=== PATIENT | female | born 1950 | race Caucasian/White ===

== ENCOUNTER → 2019-09-13 | Outpatient (CLI) | payer MEDICARE | END | disposition home or self-care (01) | LOC: RAH 07:39 | PROVIDERS: ATTEND Physical Medicine & Rehabilitation | DX: M47.24 Other spondylosis with radiculopathy, thoracic region (principal); M43.8X4 Other specified deforming dorsopathies, thoracic region | CPT/HCPCS: 72148 ==

== ENCOUNTER → 2019-11-07 | Outpatient (CLI) | payer MEDICARE | END | disposition home or self-care (01) | LOC: RAH 14:37 | PROVIDERS: ATTEND Physical Medicine & Rehabilitation | DX: M84.38XA Stress fracture, other site, initial encounter for fracture (principal); M54.16 Radiculopathy, lumbar region; Z90.710 Acquired absence of both cervix and uterus | CPT/HCPCS: 72195 ==

== ENCOUNTER → 2019-11-09 | Outpatient (CLI) | payer MEDICARE | END | disposition home or self-care (01) | LOC: RAH 09:00 | PROVIDERS: ATTEND Physical Medicine & Rehabilitation | DX: M51.16 Intervertebral disc disorders with radiculopathy, lumbar region (principal); M53.3 Sacrococcygeal disorders, not elsewhere classified | CPT/HCPCS: 72148 ==

== ENCOUNTER 2020-07-29 18:55 | Inpatient (IN) | payer MEDICARE ==
[~2020-07-29] VITALS: Ht 154.9 cm; Wt 47.4 kg
[~2020-07-29 18:55] MED LIST: IBRU420T PO; LACT1CAP88 PO; LEVO100T4 PO; LEVO50TA6 PO; LIOT5TAB11 PO; METO50TA9 PO; [UNRECOGNIZED DRUG - OTHER] PO; [UNRECOGNIZED DRUG - OTHER] PO; [UNRECOGNIZED DRUG - OTHER] PO
[2020-07-29 19:49] LABS: BASOPHILS % (AUTO) 0.1 % (0.0-5.0); EOSINOPHILS % (AUTO) 0.1 % (0.0-8.0); HEMATOCRIT 37.7 % (36-48); LYMPHOCYTES % (AUTO) 5.4 % (21.0-51.0); MEAN CORPUSCULAR HEMOGLOBIN 29.9 pg (27.0-33.0); MEAN CORPUSCULAR HGB CONC 34.7 g/dL (32.0-36.0); MEAN CORPUSCULAR VOLUME 86.1 fL (79-99); MONOCYTES % (AUTO) 14.7 % (3.0-13.0); NEUTROPHILS % (AUTO) 79.1 % (40.0-77.0); PLATELET COUNT (AUTO) 331 K/uL (130-400); RED BLOOD CELL COUNT(AUTO) 4.38 MIL/uL (4.00-5.50); RED CELL DISTRIBUTION WIDTH 12.8 % (11.0-15.5); WHITE BLOOD COUNT (AUTO) 15.6 K/uL (4.8-10.8)
[2020-07-29 20:13] LABS: ALBUMIN 2.4 g/dL (3.5-5.0); BILIRUBIN,TOTAL 0.9 mg/dL (0.2-1.0); CREATININE 0.6 mg/dL (0.5-1.5); POTASSIUM 4.1 mmol/L (3.5-5.1); THYROID STIMULATING HORMONE 3.64 uIU/mL (0.36-3.74); TOTAL PROTEIN, SERUM 6.5 g/dL (6.0-8.3)
[2020-07-29 20:33] LABS: B-TYPE NATRIURETIC PEPTIDE 170 pg/mL (0-100)
[2020-07-29] MEDS ORDERED: SODIUM CHLORIDE 0.9% 1000ML 1,000 ML IV ONE (22:31)
[2020-07-29 23:15] LABS: APPEARANCE,URINE Clear (CLEAR); BILIRUBIN,URINE Negative (NEGATIVE); COLOR,URINE Yellow (YELLOW); GLUCOSE, URINE (UA) Negative (NEGATIVE); KETONES,URINE 40 mg/dL (NEGATIVE); LEUKOCYTE ESTERASE ,URINE Trace (NEGATIVE); NITRATE,URINE Negative (NEGATIVE); OCCULT BLOOD,URINE Negative (NEGATIVE); PROTEIN,URINE Negative (NEGATIVE); UROBILINOGEN,URINE 0.2 mg/dL (0.2-1.0)
[2020-07-29 23:26] LABS: RBC,URINE 0-1 /HPF (0-1)
[2020-07-29 23:27] LABS: BACTERIA,URINE Few /HPF (None Seen)
[2020-07-30 08:30] LABS: BASOPHILS % (AUTO) 0.1 % (0.0-5.0); EOSINOPHILS % (AUTO) 0.1 % (0.0-8.0); LYMPHOCYTES % (AUTO) 4.5 % (21.0-51.0); MEAN CORPUSCULAR HEMOGLOBIN 29.7 pg (27.0-33.0); MEAN CORPUSCULAR HGB CONC 33.9 g/dL (32.0-36.0); MEAN CORPUSCULAR VOLUME 87.4 fL (79-99); MONOCYTES % (AUTO) 14.2 % (3.0-13.0); NEUTROPHILS % (AUTO) 80.6 % (40.0-77.0); PLATELET COUNT (AUTO) 348 K/uL (130-400); RED BLOOD CELL COUNT(AUTO) 4.35 MIL/uL (4.00-5.50); WHITE BLOOD COUNT (AUTO) 14.6 K/uL (4.8-10.8)
[2020-07-30 08:33] LABS: CREATININE 0.6 mg/dL (0.5-1.5)
[2020-07-30] MEDS ORDERED: PANTOPRAZOLE SODIUM 40 MG TABLET.DR ONE (09:22)
[2020-07-30] MEDS ORDERED: IPRATROPIUM/ALBUTEROL SULFATE 3 ML SOLUTION IH ONE (12:51)
[2020-07-30] MEDS ORDERED: DIPHENHYDRAMINE HCL 25 MG CAPSULE PO PRN (14:15)
[2020-07-30] MEDS ORDERED: LACTULOSE 20 GM/30 ML UDCUP PO PRN (14:15)
[2020-07-30] MEDS ORDERED: GUAIFENESIN-DM 200/20 MG 10 ML PO PRN (14:15)
[2020-07-30] MEDS ORDERED: DiphenhydrAMINE HCL 50 MG/ML VIAL IV PRN (14:15)
[2020-07-30] MEDS ORDERED: HYDRALAZINE HCL 20 MG/ML VIAL IV PRN (14:15)
[2020-07-30] MEDS ORDERED: ACETAMINOPHEN 325 MG TAB PO PRN ×2 (14:15)
[2020-07-30] MEDS ORDERED: ACETAMINOPHEN-CODEINE 300/30MG TAB PO PRN ×2 (14:15)
[2020-07-30] MEDS ORDERED: CEFTRIAXONE SODIUM 1 GM ONE (16:47)
[2020-07-30] MEDS ORDERED: AZITHROMYCIN 500MG+NS 250ML 250 ML IV ONE (17:29)
[2020-07-30] MEDS ORDERED: IPRATROPIUM/ALBUTEROL SULFATE 3 ML SOLUTION IH SCH (18:00)
[2020-07-30 18:35] VITALS: BP 126/70
--- NOTE | 2020-07-30 18:48 | NUR ---
Initial contact with pt Pt received from ED at 1815, report received from Jennifer DAVID Pt aaox4, VS stable. Airway patent, mildly labored on 2LNC. No complaints at this time. Denies any pain. Informed pt plan of care. Pt attached to bedside O2 monitor.
[2020-07-30] MEDS: AZITHROMYCIN 500MG+NS 250ML 250 ML IV SCH (19:03)
[2020-07-30] MEDS: CEFTRIAXONE SODIUM 1 GM IV SCH (19:04)
[2020-07-30] MEDS: BENZONATATE 100 MG CAPSULE PO SCH (19:55)
[2020-07-30] MEDS: METOPROLOL TARTRATE 25 MG TAB PO SCH (19:55)
[2020-07-31 03:51] VITALS: BP 125/84
[2020-07-31 05:22] LABS: HEMATOCRIT 36.7 % (36-48); MEAN CORPUSCULAR HGB CONC 34.6 g/dL (32.0-36.0); MEAN CORPUSCULAR VOLUME 86.6 fL (79-99); RED BLOOD CELL COUNT(AUTO) 4.24 MIL/uL (4.00-5.50); WHITE BLOOD COUNT (AUTO) 16.2 K/uL (4.8-10.8)
[2020-07-31 05:35] LABS: CREATININE 0.6 mg/dL (0.5-1.5); POTASSIUM 4.1 mmol/L (3.5-5.1)
[2020-07-31 08:00] VITALS: BP 139/83
--- NOTE | 2020-07-31 08:11 | NUR ---
CHERRIE ATTEMPTED-CALL TO SPOUSE NO ANSWER NOTES REVIEWED FROM LAST ADMIT- D/C 5 DAYS AGO PER LAST ADMIT SPOKE TO FOR D/C PLANNING AT THAT TIME SPOUSE STATED THAT "PATIENT IS INDEPENDENT W ALL ADL'S, AMBULATES WELL, USES STD WALKER 'JUST SOME OF THE TIME' DRIVES; HOME SAFE & ACCESSIBLE WITH ONE LEVEL AND SHOWER BENCH. SPOUSE ALSO ACTIVE AND INDEPENDENT. FOLLOWS WITH DR. BENOIT 2X YEAR, DR. STALEY Q 2-3 MOS." PENDING CALL TO CONFIRM ANY CHANGES . CM TO FOLLOW UP. Addendum: 07/31/20 at 0814 by KYLE GALEANO RN CM Amended: Links added.
[2020-07-31] MEDS: ENOXAPARIN SODIUM 40 MG/0.4 ML SYRINGE SQ SCH (09:00)
[2020-07-31] MEDS: BENZONATATE 100 MG CAPSULE PO SCH ×3 (09:00→21:00)
[2020-07-31] MEDS: METOPROLOL TARTRATE 25 MG TAB PO SCH ×2 (09:00→21:00)
[2020-07-31] MEDS: FAMOTIDINE 20MG TAB 20 MG TAB PO SCH (09:00)
--- NOTE | 2020-07-31 09:15 | NUR ---
US GUIDED LEFT THORACENTESIS PROCEDURE PERFORMED BY DR. MADERA. PUNCTURE SITE LEFT LATERAL POSTERIOR BACK AND PATIENT TOLERATED PROCEDURE WELL. TOTAL REMOVED 900 MILLILITERS OF CLOUDY YELLOW FLUID. END OF PROCEDURE AT 0930. CATHETER REMOVED AND DRESSING APPLIED. NO BLEEDING NOTED. SPECIMEN COLLECTED AND SENT TO LAB. POST CHEST X-RAY TAKEN AND READ BY DR. MADERA. NO PNEUMOTHORAX SEEN. REPORT GIVEN TO FRANKIE LAWSON AND PATIENT TRANSPORTED TO 229 VIA W/C. PT STABLE, AAO X 3 WITH NO C/O PAIN.
[2020-07-31] MEDS ORDERED: IOHEXOL-350 75 ML VIAL IV ONE (10:57)
[2020-07-31 12:00] VITALS: BP 123/72
[2020-07-31 13:56] LABS: APPEARANCE BODY FLUID CLEAR (CLEAR); BODY FLUID WBC 254 /cu. mm.; COLOR,BODY FLUID YELLOW (LT YELLOW); SPECIMENTYPE,BODY FLUID PLEURAL; TOTAL VOLUME,BODY FLUID 900 mL
[2020-07-31 13:57] LABS: BODY FLUID RBC 702 /cu. mm.
[2020-07-31 14:06] LABS: BF LYMPHOCYTE 45 %; BF MESOTHELIAL 32 %; BF MONOCYTE 3 %
[2020-07-31] MEDS: AZITHROMYCIN 500MG+NS 250ML 250 ML IV SCH (14:15)
[2020-07-31] MEDS: CEFTRIAXONE SODIUM 1 GM IV SCH (14:15)
--- NOTE | 2020-07-31 15:13 | NUR ---
RDSCREEN - LOW BMI FOR AGE Pt with recent previous admit. Heart Healthy diet order in place. Fluid restriction of 1200mL. Food preferences updated as per previous recent admission. Attempt to call Pt, No answer. Monitored labs: WBC 16.2, Na 120, Cl 89, BUN 20, BNP 170, Alb 2.4. 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 Enhanced isolation at this time. Milk, Shrimp, Gluten, [place] food allergies. No report of GI distress. BMI 19.8. No signs of muscle/fat loss as per EMR. Recommend continue Heart Healthy diet order with fluid restriction Food Preferences updated based on food preferences from recent previous admit Recommend 60mL ProMod QD RD to continue to monitor. Please notify as additional nutrition concerns arise. Thank you. Addendum: 07/31/20 at [address] RD Amended: Links added.
[2020-07-31 16:00] VITALS: BP 130/70
--- NOTE | 2020-07-31 16:15 | NUR ---
[id number] received telephone consent for IM Letter, I faxed IM Letter to [phone].
[2020-07-31] MEDS: SODIUM CHLORIDE 1,000 MG TAB PO SCH (17:00)
--- NOTE | 2020-07-31 18:02 | NUR ---
Pt in room talking on the phone w/ . Consistently denies pain except for during inspiration. Pt had a thoracentesis done today w/ 900 ml removed and she stated she was able to breathe much better after the procedure. Pt was on room air before and after receiving a shower on and maintained O2 sat 91% and above. No distress noted. will continue to monitor.
--- NOTE | 2020-07-31 18:26 | NUR ---
TRANSFER FROM ROOM 229 REPORT RECEIVED FOR ROOM 229 GOING TO 421, 70 Y/O FEMALE A&O X4, S/P THORACENTESIS TODAY WITH 900 CC REMOVED AND FLUID SENT TO LAB FOR TESTING, PATIENT HAS 4X4 WITH OP -SITE ON LEFT SIDE DRY AND INTACT NEW CONSULT FOR DR ROCHA, PATIENT ON BR WITH BRP, LABS ORDERED FOR THE AM, 2DECHO AND EKG AT 0700, LAST BM 07/31.
--- NOTE | 2020-07-31 18:50 | NUR ---
PATIENT ARRIVED ON UNIT AND ORIENTATED TO ROOM , REPORT GIVEN TO ON COMING NURSE
[2020-07-31 20:00] VITALS: BP 120/74
[2020-07-31] MEDS ORDERED: ALBUTEROL INHALER 90MCG/INH IH SCH (20:00)
[2020-07-31 23:46] VITALS: BP 132/64
[2020-08-01] VITALS (7 sets, daily range): BP systolic 121–141; BP diastolic 69–85
[2020-08-01 03:17] LABS: MEAN CORPUSCULAR HEMOGLOBIN 30.3 pg (27.0-33.0); MEAN CORPUSCULAR HGB CONC 35.1 g/dL (32.0-36.0); MEAN CORPUSCULAR VOLUME 86.2 fL (79-99); RED BLOOD CELL COUNT(AUTO) 4.06 MIL/uL (4.00-5.50); WHITE BLOOD COUNT (AUTO) 16.9 K/uL (4.8-10.8)
[2020-08-01 03:23] LABS: CREATININE 0.6 mg/dL (0.5-1.5); POTASSIUM 4.4 mmol/L (3.5-5.1)
[2020-08-01] MEDS: ENOXAPARIN SODIUM 40 MG/0.4 ML SYRINGE SQ SCH (08:37)
[2020-08-01] MEDS: METOPROLOL TARTRATE 25 MG TAB PO SCH ×2 (08:38→21:38)
[2020-08-01] MEDS: BENZONATATE 100 MG CAPSULE PO SCH ×3 (08:38→21:38)
[2020-08-01] MEDS ORDERED: ENOXAPARIN SODIUM 40 MG/0.4 ML SYRINGE SQ SCH (09:00)
[2020-08-01] MEDS: FAMOTIDINE 20MG TAB 20 MG TAB PO SCH (09:07)
[2020-08-01] MEDS ORDERED: METOPROLOL TARTRATE 1 MG/ML 5ML VIAL IV SCH (09:15)
[2020-08-01] MEDS: SODIUM CHLORIDE 1,000 MG TAB PO SCH ×3 (10:41→17:00)
[2020-08-01] MEDS ORDERED: METOPROLOL TARTRATE 25 MG TAB PO ONE (13:45)
[2020-08-01] MEDS: CEFTRIAXONE SODIUM 1 GM IV SCH (14:32)
[2020-08-01] MEDS: AZITHROMYCIN 500MG+NS 250ML 250 ML IV SCH (14:32)
[2020-08-01] MEDS ORDERED: SODIUM CHLORIDE 0.9% 1000ML 1,000 ML IV SCH (15:00)
--- NOTE | 2020-08-01 16:08 | NUR ---
NSR Pt converted to sinus rhythm at 1523.
[2020-08-01] MEDS: IPRATROPIUM 0.5 MG/2.5 ML INH IH SCH ×2 (18:49→23:46)
--- NOTE | 2020-08-01 19:55 | NUR ---
Cardiology: Dr. Gonzalez came and evaluated Pt, order received for 12lead EKG, ibuprofen 400mg TID, and colchicine 0.6 mg bid, he discussed POC to Pt for possible pericardiocentesis, Pt verbalized understanding, Dr. Gonzalez aware with Afib and converting to NSR at 1523.
[2020-08-01] MEDS: COLCHICINE 0.6 MG TABLET PO SCH (22:33)
[2020-08-01] MEDS: IBUPROFEN 200 MG TAB PO SCH (22:48)
[2020-08-02] VITALS: BP 111/65
[2020-08-02 04:00] VITALS: BP 150/84
[2020-08-02] MEDS: IPRATROPIUM 0.5 MG/2.5 ML INH IH SCH ×3 (06:14→19:03)
[2020-08-02 06:38] LABS: HEMATOCRIT 37.3 % (36-48); MEAN CORPUSCULAR HEMOGLOBIN 29.9 pg (27.0-33.0); MEAN CORPUSCULAR HGB CONC 34.6 g/dL (32.0-36.0); MEAN CORPUSCULAR VOLUME 86.3 fL (79-99); RED BLOOD CELL COUNT(AUTO) 4.32 MIL/uL (4.00-5.50); RED CELL DISTRIBUTION WIDTH 12.8 % (11.0-15.5); WHITE BLOOD COUNT (AUTO) 13.6 K/uL (4.8-10.8)
--- NOTE | 2020-08-02 06:49 | NUR ---
PATIENT UPDATE PT REMAINED ON NSR IN THE 90'S THE WHOLE NIGHT, NO EPISODES OF AFIB. DID TAKE HER METOPROLOL AND TESSALON PERLES LAST NIGHT. NO COMPLAINTS OF CHEST PAIN, SOME RESPIRATORY DISTRESS WITH O2 SAT AT 95% WHILE COMPLAINING, SCHEDULED FOR THE BREATHING TREATMENT THIS AM, WAS MADE AWARE. STARTED ON NEW MEDS ORDERED BY CARDIO.
[2020-08-02 07:02] LABS: CREATININE 0.6 mg/dL (0.5-1.5); POTASSIUM 4.1 mmol/L (3.5-5.1)
[2020-08-02 08:30] VITALS: BP 161/89
[2020-08-02] MEDS: ENOXAPARIN SODIUM 40 MG/0.4 ML SYRINGE SQ SCH (10:15)
[2020-08-02] MEDS: IBUPROFEN 200 MG TAB PO SCH ×3 (10:16→17:15)
[2020-08-02] MEDS: COLCHICINE 0.6 MG TABLET PO SCH ×2 (10:19→21:23)
[2020-08-02] MEDS: BENZONATATE 100 MG CAPSULE PO SCH ×3 (10:19→21:23)
[2020-08-02] MEDS: METOPROLOL TARTRATE 25 MG TAB PO SCH ×2 (10:19→21:22)
[2020-08-02] MEDS: FAMOTIDINE 20MG TAB 20 MG TAB PO SCH (10:19)
[2020-08-02 12:52] VITALS: BP 122/70
[2020-08-02] MEDS: SODIUM CHLORIDE 1,000 MG TAB PO SCH ×3 (15:31→17:00)
[2020-08-02] MEDS: AZITHROMYCIN 500MG+NS 250ML 250 ML IV SCH (15:32)
[2020-08-02] MEDS: CEFTRIAXONE SODIUM 1 GM IV SCH (15:32)
[2020-08-02 16:48] VITALS: BP 133/85
[2020-08-02 20:08] VITALS: BP 148/79
[2020-08-03 00:08] VITALS: BP 132/84
[2020-08-03] MEDS: IPRATROPIUM 0.5 MG/2.5 ML INH IH SCH ×3 (00:33→23:14)
[2020-08-03 04:08] VITALS: BP 137/78
[2020-08-03 05:31] LABS: BASOPHILS % (AUTO) 0.3 % (0.0-5.0); EOSINOPHILS % (AUTO) 1.9 % (0.0-8.0); HEMATOCRIT 36.5 % (36-48); LYMPHOCYTES % (AUTO) 6.3 % (21.0-51.0); MEAN CORPUSCULAR HEMOGLOBIN 29.6 pg (27.0-33.0); MEAN CORPUSCULAR HGB CONC 34.5 g/dL (32.0-36.0); MEAN CORPUSCULAR VOLUME 85.9 fL (79-99); MONOCYTES % (AUTO) 12.4 % (3.0-13.0); NEUTROPHILS % (AUTO) 78.3 % (40.0-77.0); PLATELET COUNT (AUTO) 499 K/uL (130-400); RED BLOOD CELL COUNT(AUTO) 4.25 MIL/uL (4.00-5.50); WHITE BLOOD COUNT (AUTO) 12.5 K/uL (4.8-10.8)
[2020-08-03 05:48] LABS: B-TYPE NATRIURETIC PEPTIDE 388 pg/mL (0-100)
[2020-08-03 05:50] LABS: ALBUMIN 1.8 g/dL (3.5-5.0); BILIRUBIN,TOTAL 0.3 mg/dL (0.2-1.0); CREATININE 0.6 mg/dL (0.5-1.5); POTASSIUM 3.9 mmol/L (3.5-5.1); TOTAL PROTEIN, SERUM 5.7 g/dL (6.0-8.3)
--- NOTE | 2020-08-03 07:00 | NUR ---
PATIENT UPDATE PTWAS RUNNING NSR IN THE 60'S TO 70'S UNTIL 427 WHEN SHE STARTED RUNNING AFIB WITH RVR IN THE 110'S THEN UP TO 120'S AFTER AN HOUR. REFUSED THE ATROVENT NEBS TREATMENT THIS AM, PATIENT FEELING THE PALPITATIONS, NO CHEST PAIN, NO SHORTNESS OF BREATH. PT WAS MADE AWARE ABOUT WHAT'S GOING ON.CONTINUES TO BE ON AFIB WITH RVR UNTIL THIS TIME , IN THE 130'S. REPORT GIVEN TO MAHIN DAVID WHO WENT AHEAD AND STARTED THE PATIENT'S MORNING MEDS.
[2020-08-03] MEDS: FAMOTIDINE 20MG TAB 20 MG TAB PO SCH (07:05)
[2020-08-03] MEDS: SODIUM CHLORIDE 1,000 MG TAB PO SCH ×3 (07:05→16:16)
[2020-08-03] MEDS: IBUPROFEN 200 MG TAB PO SCH ×3 (07:05→20:15)
[2020-08-03] MEDS: COLCHICINE 0.6 MG TABLET PO SCH ×2 (07:05→20:14)
[2020-08-03] MEDS: BENZONATATE 100 MG CAPSULE PO SCH ×3 (07:05→20:16)
[2020-08-03] MEDS: METOPROLOL TARTRATE 25 MG TAB PO SCH ×3 (07:06→20:15)
--- NOTE | 2020-08-03 07:10 | NUR ---
ASSESSMENT PT IS AAOX3 DENIES CP DENIES SOB DENIES NV NO COMPLAINTS AT THIS TIME, DENIES PALPITATIONS. SITTING UPRIGHT IN BED, AM MEDS GIVEN INCLUDING METOPROLOL PO, HR VIA TELE AFIB 120-140S. CALL LIGHT WITHIN REACH.
[2020-08-03 08:41] VITALS: BP 142/93
--- NOTE | 2020-08-03 08:45 | NUR ---
HR VIA TELE AFIB/FLUT 90S PT DENIES CP DENIES SOB DENIES PALPITATIONS
[2020-08-03] MEDS ORDERED: [UNRECOGNIZED DRUG - OTHER] PO (09:14)
[2020-08-03] MEDS ORDERED: [UNRECOGNIZED DRUG - OTHER] PO (09:14)
[2020-08-03] MEDS ORDERED: [UNRECOGNIZED DRUG - OTHER] PO (09:14)
[2020-08-03] MEDS ORDERED: [UNRECOGNIZED DRUG - OTHER] PO (09:14)
[2020-08-03] MEDS ORDERED: VISIBIOME PO (09:14)
[2020-08-03] MEDS ORDERED: LIOT5TAB11 PO (09:14)
[2020-08-03] MEDS ORDERED: ASCO500C18 PO (09:14)
[2020-08-03] MEDS ORDERED: [UNRECOGNIZED DRUG - OTHER] PO (09:14)
[2020-08-03] MEDS ORDERED: UBIQ100C3 PO (09:14)
[2020-08-03] MEDS ORDERED: LEVO100T4 PO (09:14)
[2020-08-03] MEDS ORDERED: [UNRECOGNIZED DRUG - OTHER] PO (09:14)
[2020-08-03] MEDS ORDERED: [UNRECOGNIZED DRUG - OTHER] PO (09:14)
[2020-08-03] MEDS ORDERED: [UNRECOGNIZED DRUG - OTHER] PO (09:14)
[2020-08-03] MEDS ORDERED: [UNRECOGNIZED DRUG - OTHER] PO (09:14)
[2020-08-03] MEDS ORDERED: VITA0.4T5 PO (09:14)
[2020-08-03] MEDS ORDERED: BLOOD BUILDER PO (09:14)
[2020-08-03] MEDS ORDERED: MAGN400T40 PO (09:14)
[2020-08-03] MEDS ORDERED: [UNRECOGNIZED DRUG - OTHER] PO (09:14)
[2020-08-03] MEDS ORDERED: MV-M1TAB19 PO (09:14)
--- NOTE | 2020-08-03 09:15 | NUR ---
HOME MEDS ENTERED INTO [employer]
--- NOTE | 2020-08-03 10:30 | NUR ---
N MARCELLO MANDUJANO ROUNDED ORDERS RECEIVED
[2020-08-03 11:49] VITALS: BP 107/73
[2020-08-03] MEDS: CEFTRIAXONE SODIUM 1 GM IV SCH (14:01)
[2020-08-03] MEDS: AZITHROMYCIN 500MG+NS 250ML 250 ML IV SCH (14:01)
--- NOTE | 2020-08-03 14:08 | NUR ---
HR CONVERTED TO SR 80S PER AUTOMATIC LEHR OPERATOR
[2020-08-03 15:49] VITALS: BP 117/77
--- NOTE | 2020-08-03 16:58 | NUR ---
DR DEBI MILNER SAW PATIENT, UPDATES GIVEN ORDERED ENOXAPARIN 1MG/KG BID
[2020-08-03 20:00] VITALS: BP 127/67
[2020-08-03] MEDS: ENOXAPARIN SODIUM 60 MG/0.6 ML SQ SCH (20:18)
[2020-08-04] VITALS (7 sets, daily range): BP systolic 118–158; BP diastolic 66–85
[2020-08-04] MEDS: FAMOTIDINE 20MG TAB 20 MG TAB PO SCH (02:53)
[2020-08-04] MEDS: IPRATROPIUM 0.5 MG/2.5 ML INH IH SCH (06:00)
[2020-08-04 06:43] LABS: BASOPHILS % (AUTO) 0.6 % (0.0-5.0); EOSINOPHILS % (AUTO) 2.3 % (0.0-8.0); HEMATOCRIT 36.8 % (36-48); MEAN CORPUSCULAR HEMOGLOBIN 29.7 pg (27.0-33.0); MEAN CORPUSCULAR HGB CONC 33.4 g/dL (32.0-36.0); MEAN CORPUSCULAR VOLUME 88.9 fL (79-99); MONOCYTES % (AUTO) 9.8 % (3.0-13.0); NEUTROPHILS % (AUTO) 78.6 % (40.0-77.0); PLATELET COUNT (AUTO) 406 K/uL (130-400); RED BLOOD CELL COUNT(AUTO) 4.14 MIL/uL (4.00-5.50); RED CELL DISTRIBUTION WIDTH 13.2 % (11.0-15.5); WHITE BLOOD COUNT (AUTO) 9.7 K/uL (4.8-10.8)
[2020-08-04] MEDS: SODIUM CHLORIDE 1,000 MG TAB PO SCH ×3 (06:46→16:31)
[2020-08-04 06:58] LABS: ALBUMIN 1.8 g/dL (3.5-5.0); BILIRUBIN,TOTAL 0.2 mg/dL (0.2-1.0); CREATININE 0.6 mg/dL (0.5-1.5); POTASSIUM 4.2 mmol/L (3.5-5.1)
--- NOTE | 2020-08-04 08:30 | NUR ---
NAZIA GOOD, IN ROOM SPEAKING WITH PT.
--- NOTE | 2020-08-04 09:02 | NUR ---
DR. Garfield TONY AND NAZIA GOOD, IN ROOM SPEAKING WITH PT. AND PT.'S SPOUSE AT BEDSIDE. QUESTIONS ANSWERED BY DR. TONY.
[2020-08-04] MEDS: BENZONATATE 100 MG CAPSULE PO SCH ×3 (09:22→20:55)
[2020-08-04] MEDS: COLCHICINE 0.6 MG TABLET PO SCH ×2 (09:22→20:54)
[2020-08-04] MEDS: IBUPROFEN 200 MG TAB PO SCH ×3 (09:23→20:54)
[2020-08-04] MEDS: ENOXAPARIN SODIUM 60 MG/0.6 ML SQ SCH ×2 (09:25→20:55)
[2020-08-04] MEDS ORDERED: FUROSEMIDE 10 MG/ML 2ML VIAL IV SCH (09:27)
[2020-08-04] MEDS: DRONEDARONE HYDROCHLORIDE 400 MG TABLET PO SCH ×2 (09:42→20:54)
[2020-08-04] MEDS: LIOTHYRONINE SODIUM 5 MCG PO SCH (10:37)
[2020-08-04] MEDS ORDERED: [UNRECOGNIZED DRUG - REMARK] SL (11:25)
[2020-08-04] MEDS ORDERED: [UNRECOGNIZED DRUG - OTHER] SL (11:25)
--- NOTE | 2020-08-04 12:57 | NUR ---
DR. Anabel FOSS, IN ROOM FOR CONSULT, SPEAKING WITH PT.
[2020-08-04] MEDS: CEFTRIAXONE SODIUM 1 GM IV SCH (14:16)
[2020-08-04] MEDS: AZITHROMYCIN 500MG+NS 250ML 250 ML IV SCH (14:16)
[2020-08-05] VITALS (9 sets, daily range): BP systolic 122–145; BP diastolic 68–88
[2020-08-05 05:53] LABS: BASOPHILS % (AUTO) 0.9 % (0.0-5.0); EOSINOPHILS % (AUTO) 2.3 % (0.0-8.0); HEMATOCRIT 36.9 % (36-48); LYMPHOCYTES % (AUTO) 14.5 % (21.0-51.0); MEAN CORPUSCULAR HGB CONC 34.1 g/dL (32.0-36.0); MEAN CORPUSCULAR VOLUME 87.9 fL (79-99); MONOCYTES % (AUTO) 9.9 % (3.0-13.0); NEUTROPHILS % (AUTO) 71.5 % (40.0-77.0); PLATELET COUNT (AUTO) 535 K/uL (130-400); RED CELL DISTRIBUTION WIDTH 13.2 % (11.0-15.5); WHITE BLOOD COUNT (AUTO) 7.7 K/uL (4.8-10.8)
[2020-08-05 06:02] LABS: BILIRUBIN,TOTAL 0.2 mg/dL (0.2-1.0); CREATININE 0.6 mg/dL (0.5-1.5); POTASSIUM 3.5 mmol/L (3.5-5.1)
[2020-08-05] MEDS: LEVOTHYROXINE 100 MCG TABLET PO SCH (06:02)
[2020-08-05 06:22] LABS: B-TYPE NATRIURETIC PEPTIDE 244 pg/mL (0-100)
[2020-08-05] MEDS: LIOTHYRONINE SODIUM 5 MCG PO SCH (06:27)
[2020-08-05] MEDS ORDERED: POTASSIUM CHLORIDE 20 MEQ ERTAB PO SCH ×2 (08:30→13:00)
[2020-08-05] MEDS: ENOXAPARIN SODIUM 60 MG/0.6 ML SQ SCH ×2 (09:38→20:35)
[2020-08-05] MEDS: COLCHICINE 0.6 MG TABLET PO SCH ×2 (09:38→20:34)
[2020-08-05] MEDS: SODIUM CHLORIDE 1,000 MG TAB PO SCH ×3 (09:39→17:13)
[2020-08-05] MEDS: DRONEDARONE HYDROCHLORIDE 400 MG TABLET PO SCH ×2 (09:39→20:33)
[2020-08-05] MEDS: BENZONATATE 100 MG CAPSULE PO SCH ×3 (09:40→20:32)
[2020-08-05] MEDS: FAMOTIDINE 20MG TAB 20 MG TAB PO SCH (09:42)
[2020-08-05] MEDS: IBUPROFEN 200 MG TAB PO SCH ×3 (09:42→20:33)
--- NOTE | 2020-08-05 09:50 | NUR ---
PLAN OF CARE DISCUSSED WITH SURGEON'S ASSISTANT. CHERYL AUGUSTINE IN AM
[2020-08-05] MEDS ORDERED: FUROSEMIDE 10 MG/ML 2ML VIAL IV SCH ×2 (11:00→17:00)
[2020-08-05] MEDS: CEFTRIAXONE SODIUM 1 GM IV SCH (15:31)
[2020-08-05] MEDS: AZITHROMYCIN 500MG+NS 250ML 250 ML IV SCH (15:31)
[2020-08-05] MEDS: LOPERAMIDE 1 MG/7.5 ML UDCUP PO PRN (17:13)
--- NOTE | 2020-08-05 18:28 | NUR ---
STOOL SAMPLE FOR C-DIFF COLLECTED AND SENT TO LAB, PT HAS HAD 6 LOOSE BOWL MOVEMENTS TODAY.
[2020-08-05] MEDS: ONDANSETRON HCL 4 MG/2 ML VIAL IV PRN (21:37)
[2020-08-06 04:25] VITALS: BP 134/68
[2020-08-06 06:24] LABS: EOSINOPHILS % (AUTO) 3.6 % (0.0-8.0); HEMATOCRIT 35.5 % (36-48); LYMPHOCYTES % (AUTO) 19.3 % (21.0-51.0); MEAN CORPUSCULAR HEMOGLOBIN 30.1 pg (27.0-33.0); MEAN CORPUSCULAR HGB CONC 34.4 g/dL (32.0-36.0); MEAN CORPUSCULAR VOLUME 87.7 fL (79-99); NEUTROPHILS % (AUTO) 66.4 % (40.0-77.0); PLATELET COUNT (AUTO) 599 K/uL (130-400); RED BLOOD CELL COUNT(AUTO) 4.05 MIL/uL (4.00-5.50); WHITE BLOOD COUNT (AUTO) 6.8 K/uL (4.8-10.8)
[2020-08-06] MEDS: LEVOTHYROXINE 100 MCG TABLET PO SCH (06:27)
[2020-08-06] MEDS: SODIUM CHLORIDE 1,000 MG TAB PO SCH (06:28)
[2020-08-06] MEDS: LIOTHYRONINE SODIUM 5 MCG PO SCH (06:30)
[2020-08-06 06:38] LABS: ALBUMIN 2.1 g/dL (3.5-5.0); BILIRUBIN,TOTAL 0.2 mg/dL (0.2-1.0); CREATININE 0.7 mg/dL (0.5-1.5); MAGNESIUM 2.5 mg/dL (1.80-2.40); PHOSPHORUS 4.3 mg/dL (2.5-4.9); TOTAL PROTEIN, SERUM 6.1 g/dL (6.0-8.3)
[2020-08-06 06:54] LABS: B-TYPE NATRIURETIC PEPTIDE 199 pg/mL (0-100)
[2020-08-06 08:00] VITALS: BP 137/77
[2020-08-06] MEDS: FUROSEMIDE 10 MG/ML 2ML VIAL IV SCH ×2 (08:57→15:54)
[2020-08-06] MEDS: BENZONATATE 100 MG CAPSULE PO SCH ×3 (08:57→21:05)
[2020-08-06] MEDS: COLCHICINE 0.6 MG TABLET PO SCH ×2 (08:58→21:04)
[2020-08-06] MEDS: DRONEDARONE HYDROCHLORIDE 400 MG TABLET PO SCH ×2 (08:58→21:04)
[2020-08-06] MEDS: FAMOTIDINE 20MG TAB 20 MG TAB PO SCH (08:58)
[2020-08-06] MEDS: IBUPROFEN 200 MG TAB PO SCH ×3 (08:58→21:05)
[2020-08-06] MEDS: ENOXAPARIN SODIUM 60 MG/0.6 ML SQ SCH ×2 (08:59→21:04)
--- NOTE | 2020-08-06 10:30 | NUR ---
RD FOLLOW UP TIME OF SCREEN: 08/06/20, 1030AM Pt Continues to tolerate Heart Healthy diet order. 60mL ProMod QD, 1200mL Fluid restriction. Pt Services of notified for food preferences and food allergies. Monitored labs: Na 134, Cl 98, Mg 2.50, Alb 2.1, BNP 199. Lasix in place. Low BMI for age. Pending possible discharge. Recommend continue current diet order with supplementation and food preferences.
[2020-08-06 11:32] VITALS: BP 137/77
[2020-08-06] MEDS: CEFTRIAXONE SODIUM 1 GM IV SCH (15:54)
[2020-08-06] MEDS: POTASSIUM CHLORIDE 20 MEQ ERTAB PO SCH (15:56)
[2020-08-06] MEDS: ONDANSETRON HCL 4 MG/2 ML VIAL IV PRN (16:01)
[2020-08-06 19:03] VITALS: BP 126/78
[2020-08-06 20:12] VITALS: BP 116/74
[2020-08-06 20:13] VITALS: BP 120/79
[2020-08-07 00:03] VITALS: BP 134/78
[2020-08-07 03:49] VITALS: BP 123/65
[2020-08-07] MEDS: LIOTHYRONINE SODIUM 5 MCG PO SCH (05:51)
[2020-08-07] MEDS: LEVOTHYROXINE 100 MCG TABLET PO SCH (05:51)
[2020-08-07] MEDS: LOPERAMIDE 1 MG/7.5 ML UDCUP PO PRN (05:54)
[2020-08-07 06:02] LABS: CREATININE 0.7 mg/dL (0.5-1.5)
[2020-08-07 07:30] VITALS: BP 131/83
[2020-08-07] MEDS: FUROSEMIDE 10 MG/ML 2ML VIAL IV SCH ×2 (07:44)
[2020-08-07] MEDS: POTASSIUM CHLORIDE 20 MEQ ERTAB PO SCH (07:44)
[2020-08-07] MEDS: ONDANSETRON HCL 4 MG/2 ML VIAL IV PRN (08:00)
[2020-08-07] MEDS: FAMOTIDINE 20MG TAB 20 MG TAB PO SCH (08:00)
[2020-08-07] MEDS ORDERED: FUROSEMIDE 10 MG/ML 2ML VIAL IV SCH (08:45)
[2020-08-07] MEDS ORDERED: POTASSIUM CHLORIDE 20 MEQ ERTAB PO SCH (08:45)
[2020-08-07] MEDS: BENZONATATE 100 MG CAPSULE PO SCH (09:00)
[2020-08-07] MEDS ORDERED: TORSEMIDE 20 MG TAB PO SCH (09:30)
[2020-08-07] MEDS: IBUPROFEN 200 MG TAB PO SCH ×3 (10:22→20:06)
[2020-08-07] MEDS: COLCHICINE 0.6 MG TABLET PO SCH ×2 (10:23→20:06)
[2020-08-07] MEDS: DRONEDARONE HYDROCHLORIDE 400 MG TABLET PO SCH ×2 (10:24→20:05)
[2020-08-07] MEDS: TORSEMIDE 20 MG TAB PO SCH (10:24)
[2020-08-07] MEDS: ENOXAPARIN SODIUM 60 MG/0.6 ML SQ SCH ×2 (10:25→20:07)
[2020-08-07 11:00] VITALS: BP 150/88
--- NOTE | 2020-08-07 15:07 | NUR ---
CHART REVIEWED, EXPECTING DC TO HOME IN 24 TO 48 HOURS, NO SERVICES ANTICIPATED Addendum: 08/07/20 at 1510 by KYLE GALEANO RN CM Amended: Links added.
[2020-08-07 16:00] VITALS: BP 112/56
[2020-08-07 20:00] VITALS: BP 136/78
[2020-08-08] VITALS (7 sets, daily range): BP systolic 96–153; BP diastolic 57–84
--- NOTE | 2020-08-08 00:42 | NUR ---
PATIENT A/OX3. DENIES PAIN OR SOB. AMBULATES STANDBY ASSIST. PATIENT CURRENTLY IN NSR. WILL CONTINUE TO MONITOR. CALL LIGHT WITHIN REACH.
[2020-08-08 05:23] LABS: BASOPHILS % (AUTO) 1.5 % (0.0-5.0); EOSINOPHILS % (AUTO) 4.4 % (0.0-8.0); HEMATOCRIT 38.3 % (36-48); LYMPHOCYTES % (AUTO) 16.1 % (21.0-51.0); MEAN CORPUSCULAR HEMOGLOBIN 29.5 pg (27.0-33.0); MEAN CORPUSCULAR HGB CONC 33.9 g/dL (32.0-36.0); MONOCYTES % (AUTO) 10.3 % (3.0-13.0); NEUTROPHILS % (AUTO) 66.8 % (40.0-77.0); PLATELET COUNT (AUTO) 573 K/uL (130-400); RED CELL DISTRIBUTION WIDTH 12.6 % (11.0-15.5); WHITE BLOOD COUNT (AUTO) 5.5 K/uL (4.8-10.8)
[2020-08-08 05:37] LABS: INR 0.95 (0.85-1.15); PARTIAL THROMBOPLASTIN TIME 27.3 SEC (26.3-35.5); PROTHROMBIN TIME 10.3 SEC (9.6-11.6)
[2020-08-08 06:01] LABS: ALBUMIN 2.4 g/dL (3.5-5.0); BILIRUBIN,TOTAL 0.2 mg/dL (0.2-1.0); CREATININE 0.6 mg/dL (0.5-1.5); PHOSPHORUS 3.6 mg/dL (2.5-4.9); POTASSIUM 3.8 mmol/L (3.5-5.1); TOTAL PROTEIN, SERUM 6.4 g/dL (6.0-8.3)
[2020-08-08 06:10] LABS: MAGNESIUM 2.2 mg/dL (1.80-2.40)
[2020-08-08] MEDS: LEVOTHYROXINE 100 MCG TABLET PO SCH (06:28)
[2020-08-08] MEDS: LOPERAMIDE 1 MG/7.5 ML UDCUP PO PRN (06:28)
[2020-08-08] MEDS: LIOTHYRONINE SODIUM 5 MCG PO SCH (06:30)
--- NOTE | 2020-08-08 08:32 | NUR ---
DR. Garfield TONY AT NURSE'S STATION SHOWING PT. CXR ON COMPUTER AND EXPLAINING CXR FINDINGS.
[2020-08-08] MEDS ORDERED: POTASSIUM CHLORIDE 20 MEQ ERTAB PO SCH (09:00)
[2020-08-08] MEDS ORDERED: LOPERAMIDE HCL 2 MG CAP PO SCH (09:00)
[2020-08-08] MEDS: FAMOTIDINE 20MG TAB 20 MG TAB PO SCH (09:12)
[2020-08-08] MEDS: TORSEMIDE 20 MG TAB PO SCH (09:12)
[2020-08-08] MEDS: IBUPROFEN 200 MG TAB PO SCH ×3 (09:12→20:32)
[2020-08-08] MEDS: ENOXAPARIN SODIUM 60 MG/0.6 ML SQ SCH ×2 (09:16→20:33)
[2020-08-08] MEDS: ONDANSETRON HCL 4 MG/2 ML VIAL IV PRN (09:16)
[2020-08-09] VITALS (7 sets, daily range): BP systolic 96–138; BP diastolic 55–76
[2020-08-09 05:34] LABS: BASOPHILS % (AUTO) 1.4 % (0.0-5.0); EOSINOPHILS % (AUTO) 4.4 % (0.0-8.0); HEMATOCRIT 40.4 % (36-48); LYMPHOCYTES % (AUTO) 23.8 % (21.0-51.0); MEAN CORPUSCULAR HEMOGLOBIN 29.2 pg (27.0-33.0); MEAN CORPUSCULAR HGB CONC 33.4 g/dL (32.0-36.0); MEAN CORPUSCULAR VOLUME 87.3 fL (79-99); MONOCYTES % (AUTO) 13.1 % (3.0-13.0); NEUTROPHILS % (AUTO) 56.6 % (40.0-77.0); PLATELET COUNT (AUTO) 559 K/uL (130-400); RED BLOOD CELL COUNT(AUTO) 4.63 MIL/uL (4.00-5.50); RED CELL DISTRIBUTION WIDTH 12.5 % (11.0-15.5); WHITE BLOOD COUNT (AUTO) 4.3 K/uL (4.8-10.8)
[2020-08-09 05:54] LABS: B-TYPE NATRIURETIC PEPTIDE 93 pg/mL (0-100)
[2020-08-09 05:59] LABS: ALBUMIN 2.6 g/dL (3.5-5.0); BILIRUBIN,TOTAL 0.2 mg/dL (0.2-1.0); CREATININE 0.8 mg/dL (0.5-1.5); MAGNESIUM 2.3 mg/dL (1.80-2.40); PHOSPHORUS 3.8 mg/dL (2.5-4.9); POTASSIUM 3.9 mmol/L (3.5-5.1); TOTAL PROTEIN, SERUM 6.9 g/dL (6.0-8.3)
[2020-08-09] MEDS: LEVOTHYROXINE 100 MCG TABLET PO SCH (06:30)
[2020-08-09] MEDS: LIOTHYRONINE SODIUM 5 MCG PO SCH (07:19)
[2020-08-09] MEDS: FAMOTIDINE 20MG TAB 20 MG TAB PO SCH (08:06)
[2020-08-09] MEDS: IBUPROFEN 200 MG TAB PO SCH ×3 (08:06→21:03)
[2020-08-09] MEDS: TORSEMIDE 20 MG TAB PO SCH (08:07)
[2020-08-09] MEDS: ENOXAPARIN SODIUM 60 MG/0.6 ML SQ SCH ×2 (08:08→21:05)
[2020-08-09] MEDS ORDERED: DRON400T2 PO (12:23)
[2020-08-09] MEDS ORDERED: NAPR250T4 PO (12:23)
[2020-08-09] MEDS ORDERED: TORS20TA4 PO (12:23)
[2020-08-09] MEDS ORDERED: OMEP20TA25 PO (12:45)
[2020-08-09] MEDS: DRONEDARONE HYDROCHLORIDE 400 MG TABLET PO SCH (14:14)
[2020-08-10 04:00] VITALS: BP 119/66
[2020-08-10] MEDS: LEVOTHYROXINE 100 MCG TABLET PO SCH ×2 (06:17→06:19)
[2020-08-10] MEDS: LIOTHYRONINE SODIUM 5 MCG PO SCH (06:20)
[2020-08-10 08:05] VITALS: BP 134/86
[2020-08-10] MEDS: DRONEDARONE HYDROCHLORIDE 400 MG TABLET PO SCH (09:41)
[2020-08-10] MEDS: TORSEMIDE 20 MG TAB PO SCH (09:42)
[2020-08-10] MEDS: IBUPROFEN 200 MG TAB PO SCH ×2 (09:43→16:28)
[2020-08-10] MEDS: FAMOTIDINE 20MG TAB 20 MG TAB PO SCH (09:43)
[2020-08-10] MEDS: ENOXAPARIN SODIUM 60 MG/0.6 ML SQ SCH (09:45)
[2020-08-10 12:01] VITALS: BP 110/66
[2020-08-10 16:11] VITALS: BP 108/67
== END 2020-08-10 18:25 | disposition home or self-care (01) | DRG 291 ==
LOC: EDH 18:55 → EDHIP 21:55 → OBSVTOIN 21:55 → 2AH 07-30 17:24 → 4DH 07-31 18:58
PROVIDERS: ADMIT Internal Medicine; ATTEND Internal Medicine
PROC: 0W9B3ZZ Drainage of Left Pleural Cavity, Percutaneous Approach (ICD-10-PCS; principal; 2020-07-31)
DX: I50.31 Acute diastolic (congestive) heart failure (principal); J18.1 Lobar pneumonia, unspecified organism; I31.3 Pericardial effusion (noninflammatory); E87.1 Hypo-osmolality and hyponatremia; I48.92 Unspecified atrial flutter; M48.55XA Collapsed vertebra, not elsewhere classified, thoracolumbar region, initial encounter for fracture; J91.8 Pleural effusion in other conditions classified elsewhere; D64.9 Anemia, unspecified; I48.0 Paroxysmal atrial fibrillation; C88.0 Waldenstrom macroglobulinemia; Z20.828 Contact with and (suspected) exposure to other viral communicable diseases; E03.9 Hypothyroidism, unspecified; G89.29 Other chronic pain; M81.0 Age-related osteoporosis without current pathological fracture; R09.02 Hypoxemia; D47.2 Monoclonal gammopathy; D75.89 Other specified diseases of blood and blood-forming organs; R19.7 Diarrhea, unspecified; Z88.8 Allergy status to other drugs, medicaments and biological substances; Z91.040 Latex allergy status; Z91.011 Allergy to milk products; Z91.013 Allergy to seafood; Z79.899 Other long term (current) drug therapy; Z87.01 Personal history of pneumonia (recurrent); Z90.710 Acquired absence of both cervix and uterus; Z79.890 Hormone replacement therapy; Z80.9 Family history of malignant neoplasm, unspecified; Z82.49 Family history of ischemic heart disease and other diseases of the circulatory system
CPT/HCPCS: 32555; 36415; 70450; 71045; 71046; 71275; 80048; 80053; 81001; 82550; 82945; 83605; 83615; 83735; 83880; 83930; 83935; 83986; 84100; 84157; 84443; 84484; 85025; 85027; 85378; 85610; 85651; 85730; 86038; 86140; 86160; 86200; 86215; 86235; 86255; 86431; 86850; 86900; 86901; 86923; 87040; 87071; 87116; 87205; 87206; 87324; 87426; 89051; 93005; 93306; 93308; 93356; 93970; 94640; 94664; G0378; J0456; J0696; J1650; J1940; J2405; J3490; J7030; Q0163; Q9967; U0003

== ENCOUNTER 2020-08-24 08:33 | Observation (INO) | payer MEDICARE ==
[~2020-08-24] VITALS: Ht 162.6 cm; Wt 43.7 kg
[~2020-08-24 08:33] MED LIST changes: +ASCO500C18 PO; +BLOOD BUILDER PO; +DRON400T2 PO; -IBRU420T PO; -LACT1CAP88 PO; -LEVO50TA6 PO; +MAGN400T40 PO; -METO50TA9 PO; +MV-M1TAB19 PO; +NAPR250T4 PO; +OMEP20TA25 PO; +TORS20TA4 PO; +UBIQ100C3 PO; +VISIBIOME PO; +VITA0.4T5 PO; +[UNRECOGNIZED DRUG - OTHER] PO; +[UNRECOGNIZED DRUG - OTHER] PO; +[UNRECOGNIZED DRUG - OTHER] PO; +[UNRECOGNIZED DRUG - OTHER] PO; +[UNRECOGNIZED DRUG - OTHER] PO; +[UNRECOGNIZED DRUG - OTHER] PO; +[UNRECOGNIZED DRUG - OTHER] PO; +[UNRECOGNIZED DRUG - OTHER] PO; +[UNRECOGNIZED DRUG - OTHER] PO; +[UNRECOGNIZED DRUG - OTHER] PO; -[UNRECOGNIZED DRUG - OTHER] PO; -[UNRECOGNIZED DRUG - OTHER] PO; -[UNRECOGNIZED DRUG - OTHER] PO; +[UNRECOGNIZED DRUG - OTHER] SL; +[UNRECOGNIZED DRUG - REMARK] SL
[2020-08-24 09:21] LABS: BASOPHILS % (AUTO) 0.7 % (0.0-5.0); EOSINOPHILS % (AUTO) 3.5 % (0.0-8.0); HEMATOCRIT 38.5 % (36-48); LYMPHOCYTES % (AUTO) 11.1 % (21.0-51.0); MEAN CORPUSCULAR HEMOGLOBIN 29.1 pg (27.0-33.0); MEAN CORPUSCULAR HGB CONC 33.5 g/dL (32.0-36.0); MEAN CORPUSCULAR VOLUME 86.9 fL (79-99); MONOCYTES % (AUTO) 11.7 % (3.0-13.0); NEUTROPHILS % (AUTO) 72.7 % (40.0-77.0); PLATELET COUNT (AUTO) 438 K/uL (130-400); RED BLOOD CELL COUNT(AUTO) 4.43 MIL/uL (4.00-5.50); WHITE BLOOD COUNT (AUTO) 6.8 K/uL (4.8-10.8)
[2020-08-24 09:29] LABS: CREATININE 1.4 mg/dL (0.5-1.5); POTASSIUM 3.8 mmol/L (3.5-5.1)
[2020-08-24 09:34] LABS: ALBUMIN 2.6 g/dL (3.5-5.0); BILIRUBIN,TOTAL 0.4 mg/dL (0.2-1.0); TOTAL PROTEIN, SERUM 7.5 g/dL (6.0-8.3)
[2020-08-24 09:35] LABS: INR 0.96 (0.85-1.15); PARTIAL THROMBOPLASTIN TIME 25.7 SEC (26.3-35.5); PROTHROMBIN TIME 10.4 SEC (9.6-11.6)
[2020-08-24 09:49] LABS: B-TYPE NATRIURETIC PEPTIDE 83 pg/mL (0-100)
[2020-08-24] MEDS ORDERED: IOHEXOL-350 75 ML VIAL IV ONE (10:31)
[2020-08-24] MEDS ORDERED: FUROSEMIDE 10 MG/ML 4ML VIAL ONE (13:04)
[2020-08-24] MEDS ORDERED: HYDRALAZINE HCL 20 MG/ML VIAL IV PRN (15:00)
[2020-08-24] MEDS ORDERED: ACETAMINOPHEN 325 MG TAB PO PRN ×2 (15:00)
[2020-08-24 16:45] VITALS: BP 112/80
[2020-08-24] MEDS ORDERED: IPRATROPIUM/ALBUTEROL SULFATE 3 ML SOLUTION IH SCH (18:00)
[2020-08-24] MEDS ORDERED: IPRATROPIUM/ALBUTEROL SULFATE 3 ML SOLUTION IH PRN (19:15)
[2020-08-24] MEDS: SODIUM CHLORIDE 0.9% 1000ML 1,000 ML IV SCH (19:25)
[2020-08-24 20:00] VITALS: BP 112/68
[2020-08-24] MEDS: NAPROXEN 250 MG TAB PO SCH (20:14)
[2020-08-24] MEDS: [UNRECOGNIZED DRUG - OTHER] SL SCH (21:00)
[2020-08-24] MEDS: [UNRECOGNIZED DRUG - OTHER] PO SCH (21:00)
[2020-08-24] MEDS ORDERED: FAMOTIDINE/PF 20 MG/2 ML VIAL IV SCH (21:00)
[2020-08-24] MEDS: [UNRECOGNIZED DRUG - OTHER] PO SCH (21:00)
[2020-08-24] MEDS: [UNRECOGNIZED DRUG - OTHER] PO SCH (21:00)
[2020-08-24] MEDS: [UNRECOGNIZED DRUG - OTHER] PO SCH (21:00)
[2020-08-24] MEDS: BLOOD BUILDER PO SCH (21:00)
[2020-08-24] MEDS: [UNRECOGNIZED DRUG - OTHER] PO SCH (21:00)
[2020-08-24 23:54] VITALS: BP 101/62
[2020-08-25 04:00] VITALS: BP 101/58
[2020-08-25] MEDS: LEVOTHYROXINE 100 MCG TABLET PO SCH (06:30)
[2020-08-25 07:38] LABS: MEAN CORPUSCULAR HEMOGLOBIN 29.2 pg (27.0-33.0); MEAN CORPUSCULAR HGB CONC 33.5 g/dL (32.0-36.0); MEAN CORPUSCULAR VOLUME 87.1 fL (79-99); RED BLOOD CELL COUNT(AUTO) 4.25 MIL/uL (4.00-5.50); WHITE BLOOD COUNT (AUTO) 7.7 K/uL (4.8-10.8)
[2020-08-25 07:48] LABS: CREATININE 0.8 mg/dL (0.5-1.5); POTASSIUM 3.1 mmol/L (3.5-5.1)
[2020-08-25 08:30] VITALS: BP 118/72
[2020-08-25] MEDS: [UNRECOGNIZED DRUG - OTHER] PO SCH (09:00)
[2020-08-25] MEDS: [UNRECOGNIZED DRUG - OTHER] PO SCH (09:00)
[2020-08-25] MEDS: TORSEMIDE 20 MG TAB PO SCH (09:00)
[2020-08-25] MEDS: [UNRECOGNIZED DRUG - OTHER] PO SCH (09:00)
[2020-08-25] MEDS: VITAMIN B COMPLEX 1 CAPSULE PO SCH (09:00)
[2020-08-25] MEDS: UBIQUINOL 100 MG PO SCH (09:00)
[2020-08-25] MEDS: [UNRECOGNIZED DRUG - OTHER] PO SCH (09:00)
[2020-08-25] MEDS: BLOOD BUILDER PO SCH ×2 (09:00→21:00)
[2020-08-25] MEDS: [UNRECOGNIZED DRUG - OTHER] PO SCH ×2 (09:00→21:00)
[2020-08-25] MEDS: [UNRECOGNIZED DRUG - OTHER] PO SCH ×2 (09:00→21:00)
[2020-08-25] MEDS: [UNRECOGNIZED DRUG - OTHER] PO SCH ×2 (09:00→21:00)
[2020-08-25] MEDS: [UNRECOGNIZED DRUG - OTHER] SL SCH ×3 (09:00→21:00)
[2020-08-25] MEDS: [UNRECOGNIZED DRUG - OTHER] PO SCH (09:00)
[2020-08-25] MEDS: NAPROXEN 250 MG TAB PO SCH ×2 (09:00→20:52)
[2020-08-25] MEDS ORDERED: FUROSEMIDE 10 MG/ML 2ML VIAL IV SCH (09:00)
[2020-08-25] MEDS: [UNRECOGNIZED DRUG - OTHER] PO SCH (09:00)
[2020-08-25] MEDS ORDERED: POTASSIUM CHLORIDE 20MEQ/100ML 100 ML IV PRN (09:15)
[2020-08-25] MEDS ORDERED: POTASSIUM CHLORIDE 10% ELIXIR 20 MEQ/15 ML UDCUP PO PRN (09:15)
[2020-08-25] MEDS ORDERED: LIDOCAINE HCL-MPF 1% 2ML VIAL IV PRN (09:15)
[2020-08-25] MEDS: POTASSIUM CHLORIDE 20 MEQ ERTAB PO PRN ×3 (09:56→17:16)
[2020-08-25] MEDS: ENOXAPARIN SODIUM 40 MG/0.4 ML SYRINGE SQ SCH (10:00)
[2020-08-25] MEDS: SODIUM CHLORIDE 0.9% 1000ML 1,000 ML IV SCH (11:00)
[2020-08-25 11:14] VITALS: BP 106/68
[2020-08-25] MEDS: PANTOPRAZOLE SODIUM 40 MG TABLET.DR PO SCH (11:15)
--- NOTE | 2020-08-25 14:35 | NUR ---
ONCOLOGY CONSULT PT REFUSES TO HAVE ONCOLOGY CONSULT PLACED, STATES WANTING ONLY "DR STALEY" AND REFUSES FOR ANY OTHER ONCOLOGIST TO SEE HER. DR Maurice CHING MADE AWARE; STATES TO NOTIFY PRIMARY MD.
--- NOTE | 2020-08-25 16:00 | NUR ---
WELL KNOWN TO CASE MANAGEMENT FROM OTHER ADMISSIONS, LIVES W SPO, IS INDEPENDENT NO MOBILITY AIDES AND DRIVES., [facility], Addendum: 08/26/20 at 1724 by KYLE GALEANO RN CM Amended: Links added.
[2020-08-25 16:55] VITALS: BP 124/75
[2020-08-25 20:00] VITALS: BP 109/74
[2020-08-25] MEDS: [UNRECOGNIZED DRUG - OTHER] PO SCH (21:00)
[2020-08-25] MEDS: [UNRECOGNIZED DRUG - OTHER] PO SCH (21:00)
[2020-08-26] VITALS: BP 113/71
[2020-08-26 04:00] VITALS: BP 105/65
[2020-08-26 04:45] LABS: HEMATOCRIT 36.8 % (36-48); LYMPHOCYTES % (AUTO) 19.6 % (21.0-51.0); MEAN CORPUSCULAR HGB CONC 32.9 g/dL (32.0-36.0); MEAN CORPUSCULAR VOLUME 88.2 fL (79-99); MONOCYTES % (AUTO) 16.4 % (3.0-13.0); NEUTROPHILS % (AUTO) 55.7 % (40.0-77.0); PLATELET COUNT (AUTO) 459 K/uL (130-400); RED BLOOD CELL COUNT(AUTO) 4.17 MIL/uL (4.00-5.50); RED CELL DISTRIBUTION WIDTH 12.8 % (11.0-15.5)
[2020-08-26 05:00] LABS: ALBUMIN 2.3 g/dL (3.5-5.0); BILIRUBIN,TOTAL 0.4 mg/dL (0.2-1.0); CREATININE 0.9 mg/dL (0.5-1.5); MAGNESIUM 2.4 mg/dL (1.80-2.40); PHOSPHORUS 4.2 mg/dL (2.5-4.9); POTASSIUM 3.4 mmol/L (3.5-5.1); TOTAL PROTEIN, SERUM 6.6 g/dL (6.0-8.3)
[2020-08-26] MEDS: POTASSIUM CHLORIDE 20 MEQ ERTAB PO PRN ×2 (05:50→10:02)
[2020-08-26] MEDS: LEVOTHYROXINE 100 MCG TABLET PO SCH (06:30)
[2020-08-26 08:30] VITALS: BP 105/68
[2020-08-26] MEDS: VITAMIN B COMPLEX 1 CAPSULE PO SCH (09:00)
[2020-08-26] MEDS: [UNRECOGNIZED DRUG - OTHER] SL SCH ×2 (09:00→13:32)
[2020-08-26] MEDS: [UNRECOGNIZED DRUG - OTHER] PO SCH (09:00)
[2020-08-26] MEDS: [UNRECOGNIZED DRUG - OTHER] PO SCH (09:00)
[2020-08-26] MEDS: [UNRECOGNIZED DRUG - OTHER] PO SCH (09:00)
[2020-08-26] MEDS: [UNRECOGNIZED DRUG - OTHER] PO SCH (09:00)
[2020-08-26] MEDS: [UNRECOGNIZED DRUG - OTHER] PO SCH (09:00)
[2020-08-26] MEDS: BLOOD BUILDER PO SCH (09:00)
[2020-08-26] MEDS: [UNRECOGNIZED DRUG - OTHER] PO SCH (09:00)
[2020-08-26] MEDS: PANTOPRAZOLE SODIUM 40 MG TABLET.DR PO SCH (09:00)
[2020-08-26] MEDS: [UNRECOGNIZED DRUG - OTHER] PO SCH (09:00)
[2020-08-26] MEDS: [UNRECOGNIZED DRUG - OTHER] PO SCH (09:00)
[2020-08-26] MEDS: [UNRECOGNIZED DRUG - OTHER] PO SCH (09:00)
[2020-08-26] MEDS: UBIQUINOL 100 MG PO SCH (09:00)
[2020-08-26] MEDS: NAPROXEN 250 MG TAB PO SCH (09:54)
[2020-08-26] MEDS: TORSEMIDE 20 MG TAB PO SCH (09:54)
[2020-08-26] MEDS: ENOXAPARIN SODIUM 40 MG/0.4 ML SYRINGE SQ SCH (09:55)
[2020-08-26 12:02] VITALS: BP 114/67
--- NOTE | 2020-08-26 16:00 | NUR ---
DC AWAKE AND ORIENTED, DENIES CHEST PAIN OR DISCOMFORT, NO SOB OR LABORED RESPIRATIONS. DC HOME INSTRUCTIONS GIVEN TO PT , ALL QUESTIONS ANSWERED. PT MADE AWARE TO DIAL 911 OR RETURN TO ER IN CASE OF EMERGENCY. PT ACKNOWLEDGED ALL DISCHARGE INFORMATION.
== END 2020-08-26 16:08 | disposition home or self-care (01) ==
LOC: EDH 08:33 → EDHIP 14:48 → 4CH 16:17 → EDHIP 16:17
PROVIDERS: ADMIT Internal Medicine Critical Care Medicine; ATTEND Internal Medicine Critical Care Medicine
DX: J90 Pleural effusion, not elsewhere classified (principal); I31.3 Pericardial effusion (noninflammatory); R79.1 Abnormal coagulation profile; I50.30 Unspecified diastolic (congestive) heart failure; I48.0 Paroxysmal atrial fibrillation; E87.1 Hypo-osmolality and hyponatremia; C88.0 Waldenstrom macroglobulinemia; M48.56XA Collapsed vertebra, not elsewhere classified, lumbar region, initial encounter for fracture; E03.9 Hypothyroidism, unspecified; Z90.89 Acquired absence of other organs; Z79.899 Other long term (current) drug therapy; Z88.1 Allergy status to other antibiotic agents; Z91.040 Latex allergy status; Z91.018 Allergy to other foods; Z91.013 Allergy to seafood
CPT/HCPCS: 36415 ×3; 71045 ×2; 71275; 80048; 80053 ×2; 83690; 83735; 83880; 84100; 84132; 84484; 85025 ×2; 85027; 85378; 85610; 85730; 93005; 93306; 93356; 94664; 96372 ×2; 99285; G0378 ×11; J1650 ×2; J1940; Q9967

== ENCOUNTER → 2024-09-03 | Outpatient (CLI) | payer MEDICARE ==
[~2024-09-03] MED LIST changes: -DRON400T2 PO; +NAPR-1196 PO; -NAPR250T4 PO; +OMEP20TA20 PO; -OMEP20TA25 PO; +UBIQ100C2 PO; -UBIQ100C3 PO
--- NOTE | 2024-09-03 16:27 | HMCIMG ---
MR SPINAL CANAL, LUMBAR WO CON REASON: LUMBAR RADICULOPATHY COMPARISON: CT angiogram of the chest 08/24/2024. TECHNIQUE: Routine imaging protocol was performed from mid vertebral body T9 through the mid sacrum. FINDINGS: There is severe compression deformities of the T12 and L1 vertebral bodies. There are mildly retropulsed fragments posterior superior margins of. The spinal canal is widely patent. There is no osseous marrow edema. These compression fractures are unchanged compared to prior CT 08/24/2020. Remaining vertebral bodies appear unremarkable. Alignment is normal. There are no focal osseous lesions. Axial images show ligamentum flavum and facet hypertrophic changes at L4-5. There is mild spinal stenosis, AP diameter between 8 and 9 mm. Remaining interspaces are widely patent. Lower thoracic cord appears normal as does the cauda equina. Neural foramina are widely patent. IMPRESSION: 1. Severe compression fractures of T12 and L1, these are old, unchanged since prior exam in 2019. 2. No evidence of spinal stenosis, no acute findings.
== END | disposition home or self-care (01) ==
LOC: RAH 15:19
PROVIDERS: ATTEND Physical Medicine & Rehabilitation
DX: M48.55XA Collapsed vertebra, not elsewhere classified, thoracolumbar region, initial encounter for fracture (principal); M48.061 Spinal stenosis, lumbar region without neurogenic claudication; M47.26 Other spondylosis with radiculopathy, lumbar region
CPT/HCPCS: 72148